=== PATIENT | female | born 1955 | race Caucasian/White ===

== ENCOUNTER → 2017-10-11 | Outpatient (CLI) | payer SELFPAY ==
--- NOTE | 2017-10-12 08:46 | RAD ---
EXAM DESCRIPTION: Chest,2 Views CLINICAL HISTORY: DYSPNEA COMPARISON: None FINDINGS: Two views of the chest. No acute consolidation is present. No effusion or pneumothorax. Heart and mediastinum within normal limits. Usual degenerative changes in the thoracic spine. IMPRESSION: Negative for acute cardiopulmonary disease. Electronically signed by: Shlomo Lui MD 10/12/2017 8:45 AM [employer]
== END | disposition home or self-care (01) ==
LOC: LAB.O 12:14
PROVIDERS: ATTEND Nurse Practitioner Family
DX: R06.02 Shortness of breath (principal); R50.9 Fever, unspecified

== ENCOUNTER 2018-08-14 06:05 | Day surgery (SDC) | payer MEDICARE, MEDICAID ==
[~2018-08-14 06:05] MED LIST: LACTATED RINGERS 1,000 ML ONE
[2018-08-14] MEDS ORDERED: KETAMINE HCL 100 MG/ML VIAL ONE (07:10)
[2018-08-14] MEDS ORDERED: MIDAZOLAM INJ 2 MG/2 ML VIAL ONE (07:45)
[2018-08-14 09:15] VITALS: BP 123/74; TEMP 97.6; O2SAT 96
--- NOTE | 2018-08-14 09:38 | OP ---
DATE OF PROCEDURE: 08/14/18 PREPROCEDURE DIAGNOSIS: 1. Average-risk colorectal cancer screening. POSTPROCEDURE DIAGNOSIS: 1. Colonic polyps. 2. Diverticulosis. 3. Internal hemorrhoids. PROCEDURE: 1. Colonoscopy with snare polypectomy. SURGEON: Emmanuel Nettles MD. SEDATION: Monitored anesthesia care. ESTIMATED BLOOD LOSS: Less than 5 mL. PROCEDURE: Informed consent was obtained prior to sedation. The preprocedure cardiopulmonary assessment was satisfactory. The patient was brought to the Endoscopy Suite and placed in the left lateral decubitus position. The patient was then sedated by the anesthesia team. Digital rectal and perianal exams were normal. The tip of the Olympus colonoscope was inserted into the rectum and advanced under direct visualization to the cecum as identified by the presence of the appendiceal orifice and ileocecal valve. Preparation of the colon was adequate. Upon reaching the cecum, the endoscope was slowly withdrawn. In the cecum, there were 4 flat polyps, ranging in size from 4 to 8 mm. These were resected with cold snare polypectomy and retrieved for pathology. In the sigmoid and descending colon, there was marked diverticulosis. A retroflexed view of the anal verge showed small, non- bleeding internal hemorrhoids. The endoscope was then withdrawn from the patient and the procedure terminated. RECOMMENDATION: 1. Discharge the patient home with escort. 2. Resume regular diet. 3. Continue present medications. 4. Followup pathology. 5. Surveillance colonoscopy should be performed in 3 years' time. #[id number] MTDD
[2018-08-14] MEDS ORDERED: PROPOFOL 200 MG/20 ML VIAL IV ONE (10:00)
== END 2018-08-14 09:36 | disposition home or self-care (01) ==
LOC: AMB 06:05
PROVIDERS: ATTEND Internal Medicine Gastroenterology
DX: R10.84 Generalized abdominal pain (principal); D12.0 Benign neoplasm of cecum; K57.30 Diverticulosis of large intestine without perforation or abscess without bleeding; K64.8 Other hemorrhoids; I10 Essential (primary) hypertension; K21.9 Gastro-esophageal reflux disease without esophagitis; E66.9 Obesity, unspecified; K76.0 Fatty (change of) liver, not elsewhere classified; Z68.34 Body mass index [BMI] 34.0-34.9, adult; Z86.010 Personal history of colon polyps; Z79.899 Other long term (current) drug therapy
CPT/HCPCS: 00811; 45385; 88305; J2250; J3490; J7120

== ENCOUNTER → 2018-10-14 | Outpatient (CLI) | payer MEDICARE, MEDICAID ==
--- NOTE | 2018-10-14 13:36 | MRI ---
EXAM DESCRIPTION: Lumbar Spine w/o Contrast CLINICAL HISTORY: M54.5 COMPARISON: None Available. TECHNIQUE: MRI of the lumbar spine is performed according to our usual protocol with axial and sagittal multi sequence imaging. FINDINGS: Sagittal T2 images reveal decreased signal intensity consistent with desiccation of the intervertebral discs at all lumbar levels. Congenitally small lumbar spinal canal. Posterior annular bulges are most prominent at L3-4 and L4-5 with spinal stenosis. No prevertebral mass or aneurysm. Lower cord and conus appear normal. Tip of the conus is behind lower L1. Sagittal T1 images reveal benign marrow signal characteristics. Normal T1 signal intensity and appearance of the lower cord and conus. Small hemangioma in T12. Sagittal STIR images are negative for marrow edema within the vertebral bodies or posterior elements. No paraspinous fluid collection or cystic lesion. Axial T1 and T2-weighted images were obtained to evaluate the disc levels. T12-L1: No posterior annular bulge or herniation. No spinal stenosis or neural foraminal narrowing. Mild facet hypertrophic changes. Normal appearance of the lower cord and conus. L1-2: No posterior annular bulge or herniation. No spinal stenosis or neural foraminal narrowing. Facets appear normal. L2-3: Mild posterior annular bulge without focal herniation. No spinal stenosis or neural foraminal narrowing. Facets appear moderately hypertrophic with ligamentum flavum thickening causing moderate narrowing of subarticular recesses. L3-4: Diffuse posterior annular bulge causes moderately severe spinal stenosis with AP diameter of the spinal canal measuring 7 mm. There is [id number] bilateral neural foraminal narrowing. Marked facet hypertrophy is seen with ligamentum flavum thickening. There is moderately severe subarticular recess narrowing crowding the descending L4 nerve roots. L4-5: Diffuse posterior annular bulge causes moderate spinal stenosis with AP diameter of spinal canal narrowed to approximately 8 mm. Marked facet hypertrophy is seen with ligamentum flavum thickening narrowing the mediolateral width of the canal to 6 mm. There is severe bilateral subarticular recess narrowing. Sagittal images show moderate neural foraminal narrowing bilaterally. L5-S1: Transitional vertebral body here labeled L5-S1 shows mild diffuse posterior bulge with moderately severe bilateral subarticular recess narrowing crowding the descending S1 nerve roots bilaterally. There is moderate facet hypertrophy with mild ligamentum flavum thickening. Sacrum appears intact. No retroperitoneal mass or aneurysm. IMPRESSION: Moderate diffuse posterior annular bulges at L3-4 and L4-5 with spinal stenosis as described. Electronically signed by: Giig Mendoza MD 10/14/2018 1:35 PM [facility]
== END ==
LOC: MRI 11:05
PROVIDERS: ATTEND Nurse Practitioner Family
DX: M51.86 Other intervertebral disc disorders, lumbar region (principal); M48.061 Spinal stenosis, lumbar region without neurogenic claudication

== ENCOUNTER → 2020-08-30 | Outpatient (CLI) | payer MEDICARE, MEDICAID | LOC: GMAE 18:22 | PROVIDERS: ATTEND Family Medicine | DX: I10 Essential (primary) hypertension (principal); E11.9 Type 2 diabetes mellitus without complications ==

== ENCOUNTER → 2020-10-28 | Outpatient (CLI) | payer MEDICARE, MEDICAID ==
--- NOTE | 2020-10-28 15:38 | RAD ---
EXAM DESCRIPTION: Hand,Right 3 Views CLINICAL HISTORY: 65 years Female, HAND PN COMPARISON: None. Findings: 3 views/radiographs Location: Right hand No acute fracture or dislocation. Joint spaces are maintained. Soft tissues are unremarkable. IMPRESSION: No evidence of acute process in the right hand. Electronically signed by: Rodo Mckinley MD 10/28/2020 3:37 PM [facility]
--- NOTE | 2020-10-28 15:38 | RAD ---
Frontal, lateral, and oblique views of the left hand. Indication:HAND PN Comparison: None Impression: Mild narrowing at the PIP and DIP joints of the hand. No fracture or osseous erosions. 2 mm negative ulnar variance. Electronically signed by: Fito Yan MD 10/28/2020 3:36 PM [facility] [[email or web address]]
== END ==
LOC: RAD 08:50
PROVIDERS: ATTEND Orthopaedic Surgery
DX: M79.641 Pain in right hand (principal); M25.842 Other specified joint disorders, left hand; M25.832 Other specified joint disorders, left wrist

== ENCOUNTER → 2020-11-11 | Outpatient (CLI) | payer MEDICARE, MEDICAID ==
--- NOTE | 2020-11-12 13:08 | US ---
EXAM DESCRIPTION: Bladder CLINICAL HISTORY: 65 years Female, UTI COMPARISON: None. FINDINGS: Sonogram of the urinary bladder was performed. The bladder is partially filled but otherwise unremarkable in appearance. No abnormal bladder wall thickening for the degree of distention. Bladder volume is measured at 67.2 mL. No other pelvic viscera are visualized. No free fluid in the pelvis. IMPRESSION: Incompletely distended bladder, otherwise unremarkable in appearance. Electronically signed by: Gigi Mendoza MD 11/12/2020 1:07 PM [facility]
== END ==
LOC: US 14:08
PROVIDERS: ATTEND Family Medicine
DX: N39.0 Urinary tract infection, site not specified (principal)